=== PATIENT | female | born 2000 | race Caucasian/White ===

== ENCOUNTER 2021-12-16 13:53 | Outpatient (REF) | payer OTHER, SELFPAY ==
--- NOTE | 2021-12-16 16:32 | MHC.AU.ANR ---
Adult Audiological Evaluation Date of Visit: 12/16/21 Reason for Appointment: Audiological evaluation due to concern for decreased hearing. Patient reports significant difficulty hearing and understanding speech in the presence of background noise. 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 Patient also notes that she cannot understand the television without the use of closed captions and she has trouble hearing on the phone. She feels like she has experiencing this hearing difficulty for most of her life, but find she's struggling now at work and in her graduate school classes. She notes some sensitivity to sounds as well, which she feels may be related to sensory processing problems. Does patient feel they have a hearing loss?: Unsure Has hearing been tested previously?: No Hearing Handicap Inventory: HHIE SCORE: 28 Based on HHIE score, patient has: Severe perceived hearing handicap Ear History: Ear Infections in Childhood: Both Ears Bothersome Tinnitus/Ringing/Noises in Ears: Occasional ringing in ears Medical History: Medical History: Developmental Disorder/Delay, Migraines Medical History (Other): Autism Spectrum Disorder, Attention Deficit Disorder, epigastric hernia surgically repaired in 2005, joint hypermobility. Allergies: Amoxicillin Medication List: Adderall, Topomax, Naproxen PRN, Prochlorperazine PRN, Rizatriptan PRN, multivitamin Otoscopy: Right Ear: Unremarkable Left Ear: Unremarkable Tympanometry: Tympanometry performed due to: To assess integrity of the middle ear system Right Ear: Normal Middle Ear System (Type A) Left Ear: Normal Middle Ear System (Type A) Hearing Evaluation: Transducer(s) Used: Insert Earphones Method: Conventional Audiometry Stimuli Used: Pure Tones Right Ear: Description of Hearing: Normal peripheral hearing sensitivity from 250-8000 Hz. Left Ear: Description of Hearing: Normal peripheral hearing sensitivity from 250-8000 Hz. Speech Recognition Threshold (SRT): Method Used: Monitored Live Voice Stimuli Used: Spondee Words Right Ear: 15 dBHL Left Ear: 10 dBHL Word Discrimination: Method: Recorded Lists Word Lists Used: NU-6 Right Ear: 100% at 50 dBHL Left Ear: 96% at 50 dBHL QuickSIN: 8 dB SNR loss when presented binaurally at 50 dBHL. This indicates a moderate nazlbj-sa-[id number] understanding deficit. Interpretation of Results: Today's audiological evaluation indicates normal peripheral hearing sensitivity, normal middle-ear function, and excellent speech understanding in noise. Patient struggled on the QuickSIN ([id number]-gn-[id number] test) and scored in the moderate deficit range. Those with normal hearing typically fall within the 0-3 dB SNR range, and patient scored 8 dB SNR loss, significantly higher than would be expected based on her pure tone thresholds. QuickSIN results are suggestive of auditory processing difficulties resulting in reduced ability to understand speech in the presence of background noise. Those with rylxwp-hv-agzlh deficits often benefit from an increased skbqjs-em-qfrxb ratio, provided by hearing aids or a remote microphone system. Recommendations: Audiological re-evaluation in one year. Discussed today's results with the patient. Advised that traditional hearing aids are not recommended given her normal pure tone thresholds and concerns for sensitivity to loud, high pitch noises. Advised that in her graduate school classes she would benefit from preferential seating close to the speaker, captioning of videos, and providing a copy or outline of notes for students to review before class and to follow along with during class. If she continues to experience difficulties hearing in the classroom setting even with accommodations, a remote microphone system may be considered (i.e. a Corwin microphone coupled with ear level Corwin Focus II devices). A remote microphone system would also benefit her in work meetings, in classroom discussions, and in social settings with background noise. Classroom acoustic should also be considered. Adding carpeting and wall covers help with reverberation. Shutting doors and windows to reduced outside noise. Arranging the primary classroom area away from noise sources (i.e. HVAC systems). Diagnosis: Primary Diagnosis: H93.293 Abnormal Auditory Perception Services Performed: Services Performed: Pure Tone- Air (CPT 25293) Speech Audiometry Threshold, with Speech Recognition (CPT 32668) Tympanometry (CPT 99627) Unlisted Otorhinolaryngological Service or Procedure (CPT 14472) Signature: Provider: Korey Anaya, [facility]
== END 2021-12-16 13:54 | disposition home or self-care (01) ==
LOC: HO.SH 13:53
PROVIDERS: PCP Internal Medicine; Visit Provider Internal Medicine
DX: Z01.118 Encounter for examination of ears and hearing with other abnormal findings (principal); H93.293 Other abnormal auditory perceptions, bilateral
CPT/HCPCS: 92552; 92556; 92567; 92700

== ENCOUNTER 2021-12-16 15:20 | Outpatient (REF) | payer OTHER, SELFPAY ==
[2021-12-16 15:49] LABS: MANUAL DIFF FLAG NO
[2021-12-16 17:13] LABS: Basophils Absolute Auto 0.1 X10*3/uL (0.0-0.2); Basophils Percent Auto 0.8 % (0-2); Eosinophils Absolute Auto 0.3 X10*3/uL (0.0-0.4); Eosinophils Percent Auto 3.3 % (0-4); Hematocrit 37.3 % (37.0-47.0); Hemoglobin 12.5 g/dl (12.0-16.0); Imm Gran Abs Auto 0.03 X10*3/uL (0.00-0.03); Imm Gran Pct Auto 0.4 % (0.0-0.4); Lymphocytes Absolute Auto 2.4 X10*3/uL (1.2-4.9); Lymphocytes Percent Auto 28.6 % (20-40); Mean Corpuscular HGB Conc 33.5 g/dl (31.0-35.0); Mean Corpuscular Volume 86.5 fL (80.0-98.0); Mean Platelet Volume 9.9 fL (9.4-12.3); Monocytes Absolute Auto 0.7 X10*3/uL (0.1-1.2); Monocytes Percent Auto 7.8 % (2-11); Neutrophils Percent Auto 59.1 % (45-73); Platelet Count 300 X10*3/uL (160-400); Red Blood Count 4.31 X10*6/uL (4.20-5.50); Red Cell Distribution Width 13.3 % (11.0-16.0); White Blood Count 8.5 X10*3/uL (4.8-10.8)
[2021-12-16 17:54] LABS: Alanine Aminotransferase 7 U/L (0-31); Albumin Level 4.8 g/dL (3.5-5.0); Alkaline Phosphatase 73 U/L (39-117); Anion Gap 14 (12-20); Aspartate Amino Transferase 21 U/L (5-31); Bilirubin Total 0.6 mg/dL (0.0-1.0); Blood Urea Nitrogen 11 mg/dL (9-16); Calcium 10.4 mg/dL (8.4-10.2); Carbon Dioxide 25 mmol/L (22-29); Chloride 105 mmol/L (96-108); Estimated Glomerular Filt Rate > 60; Glucose Random 82 mg/dL (60-115); Potassium 4.2 mmol/L (3.3-5.1); Rheumatoid Factor < 15.0 IU/mL (<15.0); Sodium 140 mmol/L (135-145); Total Protein 7.2 g/dL (6.5-8.0)
[2021-12-16 17:58] LABS: Thyroid Stimulating Hormone 2.94 uIU/mL (0.32-4.0)
[2021-12-16 18:00] LABS: Erythrocyte Sedimentation Rate 5 MM/HR (0-20)
[2021-12-18 11:52] LABS: Anti Nuclear Antibody Screen POSITIVE (NEGATIVE); Anti Nuclear Antibody Titer 1:40 titer
== END 2021-12-16 15:21 | disposition home or self-care (01) ==
LOC: HO.LAB 15:20
PROVIDERS: PCP Internal Medicine; Visit Provider Internal Medicine
DX: Z00.00 Encounter for general adult medical examination without abnormal findings (principal); F84.0 Autistic disorder; F90.0 Attention-deficit hyperactivity disorder, predominantly inattentive type; G43.109 Migraine with aura, not intractable, without status migrainosus
CPT/HCPCS: 36415; 80053; 84443; 85025; 85652; 86038; 86039; 86431

== ENCOUNTER → 2022-02-05 10:13 | Outpatient (REF) | payer OTHER, SELFPAY ==
--- NOTE | 2022-02-05 10:21 | CA_ITS ---
Transthoracic Echocardiogram Patient (Last, First, Middle): Aura Escobar, Gender: Female Date of : 2000 Age: 21 Procedure Date: 02/05/2022 Procedure Type: Transthoracic Echocardiogram Location: OP Height: 165.1 cm Weight: 63.5 kg BSA: 1.70 m2 Heart Rate: bpm BP: 110 / 68 mmHg Animal Services Officer: CP/TO Referring MD: Ciara Alegre MD Symptoms: M35.7 R/O CARDIAC VALVE PROB, HYPERMOBILITY OF JOINTS Study Quality: Good Conclusions: - Normal left ventricular size, thickness, systolic function, and wall motion. The visually estimated ejection fraction is between 60-65%. Diastolic function is normal for age. - Normal right ventricular cavity size and systolic function. Findings Left Ventricle Normal left ventricular size, thickness, systolic function, and wall motion. The visually estimated ejection fraction is between 60-65%. Diastolic function is normal for age. Right Ventricle Normal right ventricular cavity size and systolic function. Atria Both atria are normal in size. Aortic Valve Normal aortic valve structure and function. There is no aortic valve stenosis. There is no aortic valve regurgitation. Mitral Valve The mitral valve appears normal. There is no mitral valve regurgitation. There is no mitral valve stenosis. Pulmonic Valve Normal pulmonic valve structure and function. There is trace pulmonic valve regurgitation. Tricuspid Valve Normal tricuspid valve structure and function. There is trace tricuspid valve regurgitation. Normal right atrial pressure. There is no evidence of pulmonary hypertension. Great Vessels All visible segments of the aorta are normal in size. The visualized portions of the pulmonary artery and branches are normal. Venous The inferior vena cava is normal in size and collapses greater than 50% with inspiration. Pericardium/Pleural There is no evidence of pericardial effusion. Prior Study Comparison No prior study available for comparison. Measurements 2D Linear Measurements IVSd: 0.82 0.6-0.9/0.6-1.0 cm LVIDd: 4.45 3.9-5.3/4.2-5.9 cm LVIDd Index: 2.62 2.4-3.2/2.2-3.1 cm/m2 LVIDs: 2.63 2.0-3.6 cm LVPWd: 0.83 0.7-1.1 cm LA Diam: 3.40 2.7-3.8/3.0-4.0 cm LAIDs Index: 2.00 1.5-2.3 cm/m2 LV Mass: 144.53 67-162/88-224 g LV Mass Index: 85.02 43-95/49-115 g/m2 LVOT Diam: 2.00 3.0+(-)1.3 cm 2D Systolic Function EF 4C: 59.30 >55% EF 2C: 59.30 >55% EF BiP: 59.50 >55% Mitral Valve MV Pk E: 0.89 MV PK A: 0.57 MV Decel Time: 176.00 E/A: 1.60 E'Lateral: 17.30 E'Medial: 12.40 E/E' Med: 7.20 E/E' Lat: 5.20 PHT: 52.00 MVA PHT: 4.23 Decel Story: 5.06 Aortic Valve AoV Pk Jatin: 1.42 AoV Mn Jatin: 0.96 AoV VTI: 0.26 AoV Pk Grad: 8.00 Aov Mn Grad: 4.00 MARK Cont.VTI: 3.14 LVOT LVOT Pk Jatin: 1.41 LVOT Mn Jatin: 0.87 LVOT VTI: 0.26 LVOT Pk Grad: 8.00 LVOT Mn Grad: 4.00 LVOT Diam: 2.00 LVOT Area: 3.14 Diastolic Function MV Pk E: 0.89 MV Pk A: 0.57 E/A: 1.60 E'Medial: 12.40 E/E' Med: 7.20 E' Laterial: 17.30 E/E' Lat: 5.20 Right Ventricle TAPSE (mm): 24.70 TVS' Jatin: 13.50 Tricuspid Valve TR Pk Jatin: 1.71 TR Pk Grad: 12.00 RA Press: 3.00 RVSP: 15.00 Great Vessels Aorta Sinus of Valsalva: 2.86 2.0-3.[address] Ridge: 2.08 1.7-3.4 cm Ao Asc: 2.80 2.1-3.4 cm Ao Arch: 2.40 Updated in Other Vendor System with Status of Final Byron Lee MD electronically signed on 02/06/2022 10:52:17 PM with status of Final
== END ==
LOC: HO.CARD 10:13
PROVIDERS: Visit Provider Internal Medicine
DX: M35.7 Hypermobility syndrome (principal)
CPT/HCPCS: 93306

== ENCOUNTER 2022-02-17 13:54 | Outpatient (REF) | payer OTHER, SELFPAY ==
[2022-02-17 14:23] LABS: COVID-19 Test Negative (Negative)
== END 2022-02-17 13:55 | disposition home or self-care (01) ==
LOC: HO.LAB 13:54
PROVIDERS: PCP Internal Medicine; Visit Provider Internal Medicine
DX: Z20.822 Contact with and (suspected) exposure to COVID-19 (principal)
CPT/HCPCS: 87635; C9803

== ENCOUNTER → 2022-02-25 10:20 | Outpatient (BNVA) | payer OTHER, SELFPAY | PROVIDERS: PCP Internal Medicine; Visit Provider Internal Medicine Rheumatology | DX: Z13.89 Encounter for screening for other disorder (principal) ==